=== PATIENT | male | born 1975 | race Caucasian/White ===

== ENCOUNTER 2018-12-11 17:49 | Emergency (ER) | payer OTHER ==
[~2018-12-11] VITALS: Ht 170.2 cm; Wt 86.2 kg
[~2018-12-11 17:49] MED LIST: ATI2I IV; CLONAZEPAM0.5 MG; COLACE100 MG; DEPAKOTE500 MG PO; DEPLUD PO; HAL5 PO; LEXAPRO10 MG PO; METFORMIN HCL500 MG; VAL5 PO
[2018-12-11 18:00] VITALS: Ht 170.2 cm; Wt 86.2 kg
[2018-12-11 20:37] VITALS: BP 138/80
== END 2018-12-11 20:37 | disposition home or self-care (01) ==
LOC: ED 17:49
DX: M70.21 Olecranon bursitis, right elbow (principal); I10 Essential (primary) hypertension; F20.9 Schizophrenia, unspecified; E11.9 Type 2 diabetes mellitus without complications; Y93.89 Activity, other specified